=== PATIENT | female | born 1975 | race Two or more races ===

== ENCOUNTER 2021-08-23 15:07 | Emergency (ER) | payer OTHER ==
[~2021-08-23] VITALS: Ht 154.9 cm; Wt 61.2 kg
[2021-08-23] MEDS ORDERED: LIDOCAINE 1% HCL (LOCAL ANESTH.) INJ 20ML MDV ONE (16:04)
[2021-08-23 16:08] VITALS: BP 154/72
[2021-08-23] MEDS ORDERED: TETANUS-DIPTH-ACEL PERTUSSIS 0.5ML SYR Tdap IM ONE (16:30)
== END 2021-08-23 16:35 | disposition home or self-care (01) ==
LOC: ER 15:07
DX: S60.552A Superficial foreign body of left hand, initial encounter (principal); X58.XXXA Exposure to other specified factors, initial encounter; Y93.89 Activity, other specified; Y92.89 Other specified places as the place of occurrence of the external cause; Y99.8 Other external cause status
CPT/HCPCS: 90471; 90715; 99284; J2001